=== PATIENT | male | born 1965 | race Caucasian/White ===

== ENCOUNTER 2024-08-22 14:02 | Emergency (ER) | payer OTHER, BC ==
[~2024-08-22] VITALS: Ht 188 cm; Wt 128.0 kg
[2024-08-22] VITALS (7 sets, daily range): BP systolic 146–179; BP diastolic 79–97
[2024-08-22] MEDS ORDERED: LOSARTAN POTAS100 MG PO (14:20)
[2024-08-22] MEDS ORDERED: [UNRECOGNIZED DRUG - OTHER] (14:20)
[2024-08-22 14:37] LABS: BASO% 0.5 % (0-3); HEMATOCRIT 47.5 % (39.0-50.0); HEMOGLOBIN 16.3 g/dl (14.0-18.0); LYMPH% 24.4 % (15-41); MEAN CELL VOLUME 88.8 fL CALC (80.0-100.0); MEAN CORPUSCULAR HGB 30.5 pG CALC (26.0-32.0); MEAN CORPUSCULAR HGB CONC 34.3 g/dL CAL (32.0-36.0); MONO% 6.8 % (2-13); NEUT# 5.48 thou/uL (1.82-7.42); NEUT% 65.3 % (42-76); RED BLOOD COUNT 5.35 mill/uL (4.70-6.10); RED CELL DISTRI WIDTH 12.7 % (11.5-15.5)
[2024-08-22 14:55] LABS: ALBUMIN 4.5 g/dL (3.2-5.0); ALKALINE PHOSPHATASE 69 u/l (38-126); ANION GAP 13 (6-22 (CALC)); BILIRUBIN, TOTAL 1.7 mg/dL (0.2-1.3); BUN 13 mg/dL (9-20); BUN/CREATININE RATIO 17 (12-20 (CALC)); CARBON DIOXIDE 26 mmol/l (22-30); CHLORIDE 105 mmol/l (95-108); CREATININE 0.8 mg/dL (0.7-1.3); ESTIMATED GFR 101 ML/MIN (>=90 (CALC)); POTASSIUM 3.6 mmol/l (3.5-5.1); SGOT/AST 45 u/l (17-59); SODIUM 140 mmol/l (137-146); TOTAL PROTEIN 7.8 g/dL (6.3-8.2)
== END 2024-08-22 18:55 | disposition home or self-care (01) | DRG 552 ==
LOC: ED 14:02
PROVIDERS: Family Medicine
DX: M54.50 Low back pain, unspecified (principal); N28.89 Other specified disorders of kidney and ureter; E11.9 Type 2 diabetes mellitus without complications; I10 Essential (primary) hypertension; E66.01 Morbid (severe) obesity due to excess calories; Z79.85 Long-term (current) use of injectable non-insulin antidiabetic drugs; V49.40XA Driver injured in collision with unspecified motor vehicles in traffic accident, initial encounter
CPT/HCPCS: Q9967